=== PATIENT | male | born 1990 | race Hispanic/Latino ===

== ENCOUNTER → 2021-05-21 13:34 | Outpatient (CLI) | payer OTHER, SELFPAY ==
[2021-05-21 13:57] LABS: COVID19 -Nasal RAPID Negative (Negative)
== END ==
PROVIDERS: Visit Provider Nurse Practitioner Critical Care Medicine
DX: Z20.822 Contact with and (suspected) exposure to COVID-19 (principal)
CPT/HCPCS: 87635

== ENCOUNTER → 2021-06-03 12:10 | Outpatient (CLI) | payer OTHER, SELFPAY ==
[2021-06-03 14:15] LABS: Influenza A - CEPHEID Flu A NEGATIVE (NEGATIVE); Influenza B - CEPHEID Flu B NEGATIVE (NEGATIVE)
[2021-06-03 14:16] LABS: COVID-19 CEPHEID PCR (VTM/NP) POSITIVE (Negative)
== END ==
PROVIDERS: Visit Provider Nurse Practitioner Family
DX: U07.1 COVID-19; R68.89 Other general symptoms and signs; Z20.822 Contact with and (suspected) exposure to COVID-19
CPT/HCPCS: 0240U

== ENCOUNTER → 2023-01-17 08:17 | Outpatient (CLI) | payer OTHER, SELFPAY ==
--- NOTE | 2023-01-17 08:19 | DI.RAD.S_ITS ---
PROCEDURE: XR ANKLE LT MIN 3V INDICATIONS: Left ankle pain TECHNIQUE: 3 views of the ankle were acquired. COMPARISON: None. FINDINGS: Bones: No fractures or dislocations. Ankle mortise is normally aligned. No suspicious bony lesions. Soft tissues: No tibiotalar joint effusion. Achilles tendon appears normal. IMPRESSION: Normal left ankle Dictated by: Gus Carbajal M.D. on 01/17/2023 at 9:47 Approved by: Gus Carbajal M.D. on 01/17/2023 at 9:48
== END ==
PROVIDERS: Referring Provider Nurse Practitioner Family; Visit Provider Nurse Practitioner Family
DX: S96.912A Strain of unspecified muscle and tendon at ankle and foot level, left foot, initial encounter (principal)
CPT/HCPCS: 73610

== ENCOUNTER 2023-02-27 16:00 | Emergency (ER) | payer OTHER, SELFPAY ==
[2023-02-27 16:11] VITALS: BP 134/89; PULSE 79; RESP 18; TEMP 37.2; O2SAT 96; BMI 30.7
--- NOTE | 2023-02-27 17:38 | ED.BACK ---
HPI - Back Pain/Injury <Brenda Ortiz PA-C - Last Filed: 02/27/23 18:58> General Chief Complaint: Back Pain/Injury Stated Complaint: low back pain, no known injury Time Seen by Provider: 02/27/23 17:27 Source: patient History of Present Illness HPI Narrative: Patient is a 33-year-old male who was skating at the [employer] yesterday when he felt a pop in his low back. He took ibuprofen last night and was able to sleep. He continues to have pain today. He denies any loss of bowel or bladder control, saddle anesthesia or lower extremity weakness. He has not taken any medications for this pain today. The pain does not radiate. The pain is in his left low back. He reports having pain similar to this in the past that resolved over time. Related Data Home Medications Medication Instructions Recorded Confirmed No Known Home Medications 01/17/23 01/17/23 Allergies Allergy/AdvReac Type Severity Reaction Status Date / Time No Known Drug Allergies Allergy Unverified 01/17/23 07:59 Review of Systems <Brenda Ortiz PA-C - Last Filed: 02/27/23 18:58> Review of Systems ROS Unobtainable: All systems reviewed & are unremarkable except as noted in HPI and below Patient History <Brenda Ortiz PA-C - Last Filed: 02/27/23 18:58> Social History Smoking Status: Never smoker Smoking Status: Never smoker Exam <Brenda Ortiz PA-C - Last Filed: 02/27/23 18:58> Narrative Exam Narrative: GENERAL: 33 year old patient appears stated age. Well-developed patient, in no distress. NEURO: AOx3. HEAD: Atraumatic. Normocephalic. EYES: Pupils equal round and reactive. Extraocular motions intact. No scleral icterus. No injection or drainage. ENT: Nose without bleeding or purulent drainage. Airway patent. RESPIRATORY: No distress. EXTREMITIES: No edema or joint tenderness. 5/5 strength in lower extremities against light resistance. SPINE: No midline tenderness or step-offs. Tenderness over the soft tissues in the left low back superior to the left SI joint. SKIN: No rash or erythema of visible areas Initial Vital Signs Initial Vital Signs: Vital Signs Temperature 98.9 F 02/27/23 16:11 Pulse Rate 79 02/27/23 16:11 Respiratory Rate 18 02/27/23 16:11 Blood Pressure 134/89 02/27/23 16:11 Pulse Oximetry 96 02/27/23 16:11 Oxygen Delivery Method Room Air 02/27/23 16:11 <Dylan Canela DO - Last Filed: 03/05/23 07:03> Initial Vital Signs Initial Vital Signs: Vital Signs Temperature 98.9 F 02/27/23 16:11 Pulse Rate 79 02/27/23 16:11 Respiratory Rate 18 02/27/23 16:11 Blood Pressure 134/89 02/27/23 16:11 Pulse Oximetry 96 02/27/23 16:11 Oxygen Delivery Method Room Air 02/27/23 16:11 Course <Brenda Ortiz PA-C - Last Filed: 02/27/23 18:58> Vital Signs Vital signs: Vital Signs - 8 hr 02/27/23 16:11 02/27/23 17:47 Temperature 98.9 F Pulse Rate 79 85 Respiratory Rate 18 14 Blood Pressure 134/89 133/85 Pulse Oximetry 96 98 Oxygen Delivery Method Room Air Room Air <Dylan Canela DO - Last Filed: 03/05/23 07:03> Vital Signs Vital signs: Vital Signs - 8 hr 02/27/23 16:11 02/27/23 17:47 Temperature 98.9 F Pulse Rate 79 85 Respiratory Rate 18 14 Blood Pressure 134/89 133/85 Pulse Oximetry 96 98 Oxygen Delivery Method Room Air Room Air MDM - Back Pain/Injury <Brenda Ortiz PA-C - Last Filed: 02/27/23 18:58> MDM Narrative Medical decision making narrative: Multiple etiologies for patient's symptoms considered including, but not limited to: Musculoskeletal low back pain, fracture/dislocation, disc injury. Patient was very reassuring physical exam, no red flags for cauda equina and no trauma suspicious for bony injury. Advised rest, ice, NSAIDs. Given handout of stretches that may help. 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 If he is not feeling well enough to go back to work after 5 days of rest, he should go to the walk-in clinic for reassessment. Patient's symptoms improved over duration of stay with above-stated therapies. Findings and discharge diagnosis discussed with patient/family followed by verbalization of understanding Return precautions discussed with patient/family whom verbalize understanding of diagnosis and plan Discharge Plan Departure Patient Disposition: Home Clinical Impression: Low back pain Qualifiers: Chronicity: acute Back pain laterality: left Sciatica presence: with sciatica Sciatica laterality: sciatica of left side Qualified Code(s): M54.42 - Lumbago with sciatica, left side Instructions: DI for Back Pain With Sciatica Activity Restrictions/Additional Instructions: *You have been diagnosed with musculoskeletal low back pain. You are advised to use tylenol or ibuprofen for inflammation and pain. It is generally safe to take up to 3-4grams of tylenol in 24 hours, or 2400mg of ibuprofen in 24 hours. I advise you to use ice for 15 minutes every 1-2 hours while awake for the next 3 days. Stay active with walking and gentle stretching. If your back pain is not improved after 4-6 weeks, please go to a primary care provider or the walk-in clinic for consideration of a referral to physical therapy. *What to do: *Please continue to take your regular medications as directed. [ ] New medication prescriptions sent to your pharmacy: [ ] [ ] New medication written as a paper prescription [x] No new medications given *Please follow up with your primary care provider in 2-3 days, call for an appointment. Let them know you were seen in the Emergency Department and that we ask that you be seen in follow up. We will electronically transmit a record of today's note if your PCP is in our system *If you do not have a primary care provider please contact the [facility] Resource line at [phone]. They will ask some questions about your medical history and help get you set up with a doctor in the community. *Return to Emergency Department if you should have any new, worsening or concerning symptoms, such as [fever greater than 101 F, shaking chills, worsening pain, persistent vomiting or other concerning symptoms]. Prescriptions: No Action No Known Home Medications Stand Alone Forms: Patient Portal/API, Work Release Note ED Sign-out <Dylan Canela, - Last Filed: 03/05/23 07:03> Cosign ED Attending Cosignature Attestation: Dr Canela Co-Sign Statement: I was available for consultation during this patient's emergency department visit. This chart is signed by myself for administrative purposes only. I did not have direct contact with this patient during this visit. They were seen independently by the [facility].
[2023-02-27 17:47] VITALS: BP 133/85; PULSE 85; RESP 14; O2SAT 98
== END 2023-02-27 17:48 | disposition home or self-care (01) ==
PROVIDERS: Emergency Provider Physician Assistant
DX: M54.42 Lumbago with sciatica, left side (principal)
CPT/HCPCS: 99281; 99282

== ENCOUNTER 2024-05-02 11:03 | Emergency (ER) | payer OTHER, SELFPAY ==
[2024-05-02 11:15] VITALS: BP 134/94; PULSE 80; RESP 18; TEMP 36.8; O2SAT 98; BMI 30.7
--- NOTE | 2024-05-02 11:16 | DI.RAD.S_ITS ---
PROCEDURE: XR RIBS RT MIN 3V W CXR 1V INDICATIONS: fall while snowboarding TECHNIQUE: 2 views of the ribs were acquired, along with a single view chest. COMPARISON: None. FINDINGS: Surgical changes and devices: None. Bones and chest wall: A marker is placed upon the area of clinical concern. Within this region, no displaced rib fracture or other significant rib abnormality can be seen. No rib fractures are seen elsewhere. No suspicious bony lesions. Overlying soft tissues appear unremarkable. Lungs and pleura: No pleural effusions or pneumothorax. Lungs appear clear. Mediastinum: Mediastinal contours appear normal. Heart size is normal. IMPRESSION: No displaced rib fracture or pneumothorax. Dictated by: Blas Alvarado M.D. on 05/02/2024 at 11:11 Approved by: Blas Alvarado M.D. on 05/02/2024 at 11:11
--- NOTE | 2024-05-02 12:10 | ED_ITS ---
HPI - Fall <JUANY Alcaraz - Last Filed: 05/02/24 12:21> General Chief Complaint: Fall Stated Complaint: rib pain right side Time Seen by Provider: 05/02/24 11:11 Source: patient Mode of arrival: Ambulatory History of Present Illness HPI Narrative: 34-year-old male, daily smoker, presents to the emergency department with right- sided chest pain secondary to a fall while snowboarding 5 days ago. Patient states that he caught air and landed on his chest. Patient now reports pain with deep inspiration and palpation of his right lower chest. Patient does endorse a job where he has to lift boxes that way between 40 and 50 lb and not sure if he aggravated it while at work. Patient denies hitting his head or any loss of consciousness. Related Data Home Medications Medication Instructions Recorded Confirmed No Known Home Medications 01/17/23 01/17/23 Allergies Allergy/AdvReac Type Severity Reaction Status Date / Time No Known Drug Allergies Allergy Unverified 01/17/23 07:59 Review of Systems <JUANY Alcaraz - Last Filed: 05/02/24 12:21> Review of Systems Narrative: Narrative: See HPI. GENERAL: Denies chills, fatigue, fever, sweats. HEENT: Denies sinus pain, ear pain, sore throat, difficulty swallowing, dizziness. RESPIRATORY: Denies dyspnea, cough, wheezing, sputum. CARDIOVASCULAR: Denies palpitations, edema. Endorses right-sided chest wall pain. GASTROINTESTINAL: Denies nausea, vomiting, abdominal pain, diarrhea, constipation. : Denies dysuria, frequency, incontinence, hematuria, urinary retention, flank pain. MSK: Denies weakness, joint pain, or bony pain. SKIN: Denies rash, skin lesions, or pruritis. NEUROLOGIC: Denies weakness, dizziness, headache, numbness, confusion. PSYCHIATRIC: No concerning psychosocial issues. Patient History <JUANY Alcaraz - Last Filed: 05/02/24 12:21> Social History Smoking Status: Current every day smoker Smoking Status: Current every day smoker tobacco type: vaping Exam <JUANY Alcaraz - Last Filed: 05/02/24 12:21> Narrative Exam Narrative: Exam Narrative: GENERAL: This is a well-nourished, well-developed patient, in no acute distress. HEAD: Atraumatic. Normocephalic. EYES: Pupils equal round and reactive. Extraocular motions intact. No scleral i cterus, injection or drainage. ENT: Nose without bleeding, purulent drainage. Airway patent. CARDIOVASCULAR: Regular rate and rhythm without murmurs, peripheral pulses intact, cap refill <2 sec. RESPIRATORY: Breath sounds equal and clear bilaterally. No wheezes, rales, or rhonchi. No cough. No increased respiratory effort. No accessory muscle use. GASTROINTESTINAL: Abdomen soft, non-tender, nondistended without guarding or rebound. No suprapubic pain. MSK: Moves all extremities. Normal range of motion, no clubbing or edema. Neurovascularly intact. Mild discomfort with AP squeeze test around right side rib #7. NEURO: A&O x 3. SKIN: Warm, dry, no rashes or lesions noted. Initial Vital Signs Initial Vital Signs: Vital Signs Temperature 98.2 F 05/02/24 11:15 Pulse Rate 80 05/02/24 11:15 Respiratory Rate 18 05/02/24 11:15 Blood Pressure 134/94 H 05/02/24 11:15 Pulse Oximetry 98 05/02/24 11:15 Oxygen Delivery Method Room Air 05/02/24 11:15 Reviewed <Diane Fontenot DO - Last Filed: 05/04/24 18:08> Initial Vital Signs Initial Vital Signs: Vital Signs Temperature 98.2 F 05/02/24 11:15 Pulse Rate 80 05/02/24 11:15 Respiratory Rate 18 05/02/24 11:15 Blood Pressure 134/94 H 05/02/24 11:15 Pulse Oximetry 98 05/02/24 11:15 Oxygen Delivery Method Room Air 05/02/24 11:15 Course <JUANY Alcaraz - Last Filed: 05/02/24 12:21> Orders Ordered: ED Orders 05/02/24 11:16 XR ribs RT min 3V w CXR1V Stat Vital Signs Vital signs: Vital Signs - 8 hr 05/02/24 11:15 Temperature 98.2 F Pulse Rate 80 Respiratory Rate 18 Blood Pressure 134/94 H Pulse Oximetry 98 Oxygen Delivery Method Room Air <Diane Fontenot DO - Last Filed: 05/04/24 18:08> Orders Ordered: ED Orders 05/02/24 11:16 XR ribs RT min 3V w CXR1V Stat Vital Signs Vital signs: Vital Signs - 8 hr 05/02/24 11:15 Temperature 98.2 F Pulse Rate 80 Respiratory Rate 18 Blood Pressure 134/94 H Pulse Oximetry 98 Oxygen Delivery Method Room Air MDM - Fall <JUANY Alcaraz - Last Filed: 05/02/24 12:21> Differential Diagnosis Differential diagnosis: Likely other (Rib fracture or contusion) Imaging Data Chest x-ray: Radiologist's Impression: [address] [address] XRay Report Signed Patient: Kavin Benedict MR#: [id number] : 1990 Acct:[id number] Age/Sex: 34 / M Date of Service: 05/02/24 Loc: ED Accession Number: [id number] Procedure: XR ribs RT min 3V w CXR1V Ordering Provider: Dylan Esposito PROCEDURE: XR RIBS RT MIN 3V W CXR 1V INDICATIONS: fall while snowboarding TECHNIQUE: 2 views of the ribs were acquired, along with a single view chest. COMPARISON: None. FINDINGS: Surgical changes and devices: None. Bones and chest wall: A marker is placed upon the area of clinical concern. Within this region, no displaced rib fracture or other significant rib abnormality can be seen. No rib fractures are seen elsewhere. No suspicious bony lesions. Overlying soft tissues appear unremarkable. Lungs and pleura: No pleural effusions or pneumothorax. Lungs appear clear. Mediastinum: Mediastinal contours appear normal. Heart size is normal. IMPRESSION: No displaced rib fracture or pneumothorax. Dictated by: Blas Alvarado M.D. on 05/02/2024 at 11:11 Approved by: Blas Alvarado M.D. on 05/02/2024 at 11:11 [facility] Narrative Medical decision making narrative: 34-year-old male with right-sided chest pain secondary to snowboarding accident. No visible signs bruising or flail chest and lungs clear to auscultation. Chest and rib x-ray reveal no displaced fracture or pneumothorax. Discussed supportive care measures with patient to include Tylenol or ibuprofen as needed for discomfort, splinting that area when coughing or sneezing and caution when lifting boxes. Discussed plan of care and return precautions with patient, verbalized understanding and was agreeable to course of action. Discharge Plan Departure Patient Disposition: Home Clinical Impression: Contusion of rib on right side Qualifiers: Encounter type: initial encounter Qualified Code(s): S20.211A - Contusion of right front wall of thorax, initial encounter Instructions: DI for Rib Contusion Activity Restrictions/Additional Instructions: *You have been diagnosed with a suspected right-sided rib contusion. Your chest x-ray was normal and no signs fracture or collapsed lung. Please treat this with good supportive care that includes rest, splinting that area when coughing or sneezing, using Tylenol or ibuprofen as needed for discomfort and caution when lifting boxes at work. For any worsening symptoms, please feel free to return to the emergency department. Otherwise, follow up with your family doctor as needed. *What to do: *Please continue to take your regular medications as directed. [ ] New medication prescriptions sent to your pharmacy: [ ] [ ] New medication written as a paper prescription [x ] No new medications given *Please follow up with your primary care provider in 2-3 days, call for an appointment. Let them know you were seen in the Emergency Department and that we ask that you be seen in follow up. We will electronically transmit a record of today's note if your PCP is in our system *If you do not have a primary care provider please contact the [facility] Resource line at [phone]. They will ask some questions about your medical history and help get you set up with a doctor in the community. ? Return to ER if you should have any new, worsening or concerning symptoms, such as worsening pain, severe headache, confusion, chest pain, difficulty breathing, fever greater than 101 F, shaking chills, persistent vomiting to the point that you cannot drink fluids, or other new or worsening symptoms. Prescriptions: No Action No Known Home Medications Stand Alone Forms: Patient Portal/API/Survey, Work Release Note ED Sign-out <Diane Fontenot DO - Last Filed: 05/04/24 18:08> Cosign ED Attending Lance Attestation: I was available for consultation.
== END 2024-05-02 13:00 | disposition home or self-care (01) ==
PROVIDERS: Emergency Provider Registered Nurse
DX: S20.211A Contusion of right front wall of thorax, initial encounter (principal); V00.311A Fall from snowboard, initial encounter
CPT/HCPCS: 71101; 99283

== ENCOUNTER → 2024-07-18 11:43 | Outpatient (CLI) | payer OTHER, SELFPAY ==
--- NOTE | 2024-07-18 11:44 | DI.RAD.S_ITS ---
PROCEDURE: XR HAND RT MIN 3V INDICATIONS: Right thumb injury TECHNIQUE: 3 views of the hand, with a dedicated additional lateral view of the thumb acquired. COMPARISON: None. FINDINGS: Bones: No fractures or dislocations. Carpal bones are normally aligned. No suspicious bony lesions. Soft tissues: Thumb soft tissue swelling is seen. IMPRESSION: Soft tissue swelling seen of the thumb, yet without a displaced fracture on these plain films. Dictated by: Blas Alvarado M.D. on 07/18/2024 at 11:21 Approved by: Blas Alvarado M.D. on 07/18/2024 at 11:22
== END ==
PROVIDERS: Referring Provider Registered Nurse; Visit Provider Registered Nurse
DX: M79.644 Pain in right finger(s) (principal); M79.89 Other specified soft tissue disorders
CPT/HCPCS: 73130